=== PATIENT | female | born 1975 | race Caucasian/White ===

== ENCOUNTER 2024-06-23 10:45 | Inpatient (IN) | payer OTHER ==
[~2024-06-23] VITALS: Ht 121.9 cm; Wt 86.2 kg
[~2024-06-23 10:45] MED LIST: IRBESARTAN150 MG PO; NAPROXEN500 MG PO; SYNTHROID75 MCG PO; WELLBUTRIN XL300 MG PO
[2024-06-23 11:29] VITALS: BP 125/84
[2024-06-23] MEDS ORDERED: DULOXETINE HCL40 MG PO (11:36)
[2024-06-23] MEDS ORDERED: ARMOUR THYROID90 MG PO (11:36)
[2024-06-23] MEDS ORDERED: TOLTERODINE TART4 MG PO (11:37)
[2024-06-23] MEDS ORDERED: TOPAMAX25 MG PO (11:37)
[2024-06-23 12:03] LABS: PH,URINE 7.5 (5.0-8.0); URINE APPEARANCE Clear; URINE BILIRRUBIN Negative (NEGATIVE); URINE BLOOD Negative; URINE COLOR Yellow; URINE GLUCOSE Negative (NEGATIVE); URINE KETONE Negative (NEGATIVE); URINE LEUKOCYTE Trace; URINE NITRATE Negative; URINE PROTEIN Trace (NEGATIVE); URINE UROBILINOGEN 0.2 E.U./dl
[2024-06-23 12:09] LABS: URINE BACTERIA 985.2 uL (0.0-1933); URINE RBC 7.3 uL (0.0-20.8); URINE WBC 10.5 uL (0.0-23.2)
[2024-06-23 12:22] LABS: URINE CAST 0.29 uL (0.0-1.40)
[2024-06-23 12:25] LABS: HEMATOCRIT 36.6 % (36.0-45.00); HEMOGLOBIN 12.4 g/dL (12.0-15.00); MEAN CELL VOLUME 86.5 fL (80.00-100.00); MEAN CORPUSCULAR HEMOGLOBIN 29.3 pg (27.00-32.0); MEAN CORPUSCULAR HGB CONC 33.8 g/dl (32.0-36.0); PLATELET COUNT 404 K/uL (150-450); RED BLOOD COUNT 4.23 M/uL (4.00-6.00); RED CELL DISTRIBUTION WIDTH 15.9 % (11.5-14.5)
[2024-06-23 12:47] LABS: INR 1.04; PARTIAL THROMBOPLASTIN TIME 31.9 SECONDS (22.0-34.0); PROTHROMBIN TIME 11.3 SECONDS (9.0-11.5)
[2024-06-23 12:55] LABS: ALBUMIN 3.8 gm/dL (3.4-5.0); BILIRUBIN TOTAL 0.36 mg/dL (0.3-1.2); CALCIUM 8.9 mg/dL (8.5-10.1); CREATININE SERUM 0.92 mg/dL (0.55-1.02); GFR 64.88; GLOBULINA 3.2 G/DL (2.4-3.5); POTASSIUM 4.09 mEq/L (3.5-5.1)
[2024-07-07] MEDS ORDERED: CEFOXITIN SODIUM 2,000 MG VIAL IV ONE (09:41)
[2024-07-07] MEDS ORDERED: METRONIDAZOLE/SODIUM CHLORIDE 500 MG/100 ML PIGGYBACK IV ONE (09:41)
[2024-07-07] MEDS ORDERED: POVIDONE-IODINE 118 ML BOTT TOP ONE (12:54)
[2024-07-07] MEDS ORDERED: BUPIVACAINE HCL/MPF 0.5% 30ML VIAL ONE (12:54)
[2024-07-07] MEDS ORDERED: ENALAPRILAT DIHYDRATE 1.25 MG/ML VIAL IV PRN (15:15)
[2024-07-07] MEDS ORDERED: THROMBIN,HU/FIBRINOGEN/CALCIUM 10 ML SYRINGE TOP ONE (17:04)
[2024-07-07] MEDS ORDERED: VISTASEAL DUAL APPICATOR 1 EACH APPL TOP ONE (17:08)
[2024-07-07] MEDS ORDERED: MORPHINE SULFATE 4 MG/ML CARTRIDGE IV PRN (18:30)
[2024-07-07] MEDS ORDERED: ONDANSETRON HCL 2 MG/ML VIAL IV PRN (18:30)
[2024-07-07] MEDS ORDERED: RINGERS SOLUTION,LACTATED 1,000 ML IV SCH (18:30)
[2024-07-07] MEDS ORDERED: KETOROLAC TROMETHAMINE 30 MG VIAL IV PRN (18:30)
[2024-07-07] MEDS ORDERED: SIMETHICONE 125 MG CAPSULE PO SCH (21:00)
[2024-07-07] MEDS ORDERED: FAMOTIDINE/PF 20 MG/2 ML VIAL IV SCH (21:00)
[2024-07-07] MEDS ORDERED: FAMOTIDINE/PF 20 MG/2 ML VIAL ONE (21:43)
[2024-07-07 22:12] VITALS: BP 156/75; O2SAT 100
[2024-07-08 00:54] VITALS: BP 124/61; O2SAT 96
[2024-07-08] MEDS ORDERED: ACETAMINOPHEN WITH CODEINE 1 UDTAB TABLET PO PRN (05:00)
[2024-07-08 07:03] LABS: HEMATOCRIT 33.1 % (36.0-45.00); MEAN CELL VOLUME 87.2 fL (80.00-100.00); MEAN CORPUSCULAR HEMOGLOBIN 29.1 pg (27.00-32.0); MEAN CORPUSCULAR HGB CONC 33.4 g/dl (32.0-36.0); PLATELET COUNT 365 K/uL (150-450); RED BLOOD COUNT 3.79 M/uL (4.00-6.00); RED CELL DISTRIBUTION WIDTH 15.7 % (11.5-14.5)
[2024-07-08] MEDS ORDERED: IRBESARTAN 150 MG TABLET PO SCH (09:00)
[2024-07-08] MEDS ORDERED: NAPROXEN 500 MG TABLET PO PRN (09:00)
[2024-07-08] MEDS ORDERED: BUPROPION HCL 150 MG TABLET.SA PO SCH (09:00)
[2024-07-08] MEDS ORDERED: ACETAMINOPHEN-1 EAC2 PO (09:04)
[2024-07-08] MEDS ORDERED: PEPCID AC20 MG PO (09:04)
[2024-07-08] MEDS ORDERED: NAPROXEN500 MG PO (09:06)
== END 2024-07-08 11:01 | disposition home or self-care (01) | DRG 743 ==
LOC: O/R 07-07 06:24 → SURH 07-07 10:45
PROVIDERS: ADMIT Obstetrics & Gynecology; ATTEND Obstetrics & Gynecology
PROC: 0UT7FZZ Resection of Bilateral Fallopian Tubes, Via Natural or Artificial Opening With Percutaneous Endoscopic Assistance (ICD-10-PCS; 2024-07-07)
PROC: 0DNW4ZZ Release Peritoneum, Percutaneous Endoscopic Approach (ICD-10-PCS; 2024-07-07)
PROC: 0TJB8ZZ Inspection of Bladder, Via Natural or Artificial Opening Endoscopic (ICD-10-PCS; 2024-07-07)
PROC: 0UT9FZZ Resection of Uterus, Via Natural or Artificial Opening With Percutaneous Endoscopic Assistance (ICD-10-PCS; principal; 2024-07-07 13:00)
DX: D25.1 Intramural leiomyoma of uterus (principal); D25.2 Subserosal leiomyoma of uterus; N80.03 Adenomyosis of the uterus; N72 Inflammatory disease of cervix uteri; Z20.822 Contact with and (suspected) exposure to COVID-19; N76.3 Subacute and chronic vulvitis; N92.1 Excessive and frequent menstruation with irregular cycle; N92.0 Excessive and frequent menstruation with regular cycle; N81.11 Cystocele, midline